=== PATIENT | female | born 1935 | race Two or more races ===

== ENCOUNTER 2020-11-25 13:46 | Inpatient (IN) | payer MEDICARE ==
[2020-11-24] MEDS: IV D5 1/2 NS 1000 ML 1,000 ML IV PRN (21:00)
[~2020-11-25] VITALS: Ht 152.4 cm; Wt 57.6 kg
[2020-11-25 14:30] LABS: HEMATOCRIT 34.5 % (31.2-41.9); MEAN CORPUSCULAR HEMOGLOBIN 27.9 uug (24.7-32.8); MEAN CORPUSCULAR VOLUME 83.3 fL (75.5-95.3); PLATELET COUNT (AUTO) 350 K/uL (179-408)
[2020-11-25 14:47] LABS: BILIRUBIN,DIRECT 0.1 mg/dL (0.0-0.2); BILIRUBIN,TOTAL 0.3 mg/dL (0.2-1.0); CREATININE 0.9 mg/dL (0.6-1.3); POTASSIUM 3.9 mmol/L (3.5-5.1); TOTAL PROTEIN, SERUM 7.2 g/dL (6.4-8.2)
--- NOTE | 2020-11-25 14:58 | NUR ---
Epic panel call placed, Robert paged.
[2020-11-25] MEDS ORDERED: AMLO-212 PO (15:16)
[2020-11-25] MEDS ORDERED: INSU3INS6 SQ (15:16)
[2020-11-25] MEDS ORDERED: PRAV40TA3 PO (15:16)
[2020-11-25] MEDS ORDERED: LOSA50TA39 PO (15:16)
[2020-11-25] MEDS ORDERED: GLIM4TAB37 PO (15:16)
[2020-11-25] MEDS ORDERED: SERT25TA PO (15:16)
--- NOTE | 2020-11-25 16:15 | NUR ---
307 telemetry room assigned to patient.
[2020-11-25] MEDS ORDERED: ACETAMINOPHEN 325 MG TABLET PO PRN (16:30)
[2020-11-25] MEDS ORDERED: CLONIDINE HCL 0.1 MG TABLET PO PRN (16:30)
[2020-11-25] MEDS ORDERED: MAGNESIUM HYDROXIDE 30 ML LIQUID UDC PO PRN (16:30)
[2020-11-25] MEDS ORDERED: ONDANSETRON 4 MG/2 ML VIAL IV PRN (16:30)
[2020-11-25] MEDS ORDERED: DEXTROSE 50% 50 ML DISP.SYRIN IV PRN (16:30)
[2020-11-25] MEDS ORDERED: Z GUARD REMEDY PASTE 57 GM TUBE TOP PRN (16:30)
--- NOTE | 2020-11-25 16:44 | NUR ---
Report given to AMMON June.
[2020-11-25 16:45] LABS: *BILIRUBIN,URIN NEGATIVE (NEGATIVE); *BLOOD, URINE NEGATIVE (NEGATIVE); *CLARITY,URINE CLEAR (CLEAR); *COLOR,URINE YELLOW (YELLOW); *KETONES,URINE 1+ (NEGATIVE); LEUKOCYTE ESTERASE ,URINE TRACE (NEGATIVE); NITRITE, URINE NEGATIVE (NEGATIVE); UGLUCOSE TRACE (NEGATIVE)
[2020-11-25 17:05] LABS: BACTERIA,URINE FEW /HPF (NONE SEEN); SQUAMOUS EPITHELIAL CELL,UR FEW /HPF (NONE SEEN)
[2020-11-25 17:06] LABS: URINE AMORPHOUS PHOSPHATES FEW /HPF
--- NOTE | 2020-11-25 18:00 | NUR ---
ADMITTED PATIENT VIA STRETCHER FROM ER ACCOMPANIED BY DAISY. REPORT GIVEN BY AMMON HOLLIS. PATIENT IS ALERT/ORIENTEDX3, ABLE TO MAKE NEEDS KNOWN, NOTED WITH EPISODES OF FORGETFULNESS, POOR HISTORIAN. SKIN IS INTACT. INCONTINENT, USES PULL UPS UPON ARRIVAL. IV SITE, INTACT, G18 TO RIGHT AC. NO DISTRESS IDENTIFIED. ON ROOM AIR. VS WNL. KEPT CALL LIGHT WITHIN REACH, ORIENTED TO THE ROOM. MD MADE AWARE OF ADMISSION. WILL ENDORSE TO THE NEXT SHIFT FOR CONTINUITY OF CARE.
--- NOTE | 2020-11-25 19:34 | NUR ---
No distress identified during the shift. Frequent visual check done. Kept call light within reach. Assisted with ADLs. All needs attended. Kept environment safe. All due meds given as ordered. Will endorse to the next shift for continuity of care.
[2020-11-25 20:00] VITALS: BP 170/80
[2020-11-25] MEDS: BLOOD SUGAR DIAGNOSTIC 1 EACH STRIP VI SCH (20:48)
[2020-11-25] MEDS: AMLODIPINE 5 MG TABLET PO SCH (20:49)
[2020-11-25] MEDS: INSULIN REGULAR, HUMAN 300 UNITS/3 ML VIAL SQ PRN (21:10)
[2020-11-25] MEDS: hydrALAZINE HCL 25 MG TABLET PO PRN (22:37)
--- NOTE | 2020-11-25 22:37 | NUR ---
PATIENT BP STILL ELEVATED 177/83,. 178/88 GIVEN APRESOLINE 25 MG PO ORDERED, NO HEADACHES NOTED, NO COMPLAIN OF DISCOMFORT, CONT TO MONITOR.
--- NOTE | 2020-11-26 03:43 | NUR ---
PATIENT BP ON RIGHT ARM 151/67 P 87, AND BP ON LEFT ARM 140/74 P 93. PATIENT HAS NO HEADACHES NO COMPLAIN OF DISCOMFORT, CONT TO MONITOR.
[2020-11-26 03:48] VITALS: BP 151/67
[2020-11-26 03:49] VITALS: BP 140/74
[2020-11-26 04:00] VITALS: BP 154/79
[2020-11-26] MEDS: BLOOD SUGAR DIAGNOSTIC 1 EACH STRIP VI SCH ×4 (05:22→20:41)
[2020-11-26 06:12] LABS: HEMATOCRIT 33.8 % (31.2-41.9); MEAN CORPUSCULAR HEMOGLOBIN 27.3 uug (24.7-32.8); MEAN CORPUSCULAR VOLUME 83.5 fL (75.5-95.3); PLATELET COUNT (AUTO) 332 K/uL (179-408)
[2020-11-26 06:25] LABS: CREATININE 0.8 mg/dL (0.6-1.3); MAGNESIUM 1.8 mg/dL (1.8-2.4); PHOSPHOROUS 3.1 mg/dL (2.5-4.9)
[2020-11-26] MEDS ORDERED: CEFTRIAXONE 1 G VIAL IV SCH (07:45)
--- NOTE | 2020-11-26 08:00 | NUR ---
Alert, oriented x 4, pleasant, able to verbalized needs appropriately. IVF infusing well
[2020-11-26] MEDS: CEFTRIAXONE 1 G in IV DEXTROSE 5% 50 ML IV SCH (09:19)
[2020-11-26] MEDS: LOSARTAN POTASSIUM 50 MG TABLET PO SCH (09:21)
[2020-11-26] MEDS: AMLODIPINE 5 MG TABLET PO SCH ×2 (09:21→20:57)
[2020-11-26] MEDS: ATORVASTATIN 10 MG TABLET PO SCH (09:21)
[2020-11-26] MEDS: SERTRALINE HCL 50 MG TABLET PO SCH (09:22)
[2020-11-26] MEDS: INSULIN REGULAR, HUMAN 300 UNIT/3 ML VIAL SQ PRN ×3 (09:25→17:58)
--- NOTE | 2020-11-26 10:00 | NUR ---
PT eval done. Assisted out of bed, ambulated.
[2020-11-26 11:40] VITALS: BP 143/57
--- NOTE | 2020-11-26 14:00 | NUR ---
Spoke with daughter over the phone, discussed plan of care and medications.
[2020-11-26 15:44] VITALS: BP_SYST 125; BP_SYST 147; BP_DIAS 64; BP_DIAS 68
--- NOTE | 2020-11-26 18:39 | NUR ---
Blood glucose monitored with Insulin sliding scale. Eating fairly
[2020-11-26] MEDS: IV D5 1/2 NS 1000 ML 1,000 ML IV PRN (19:59)
--- NOTE | 2020-11-26 20:00 | NUR ---
NSG: Received patient lying on bed. No distress identified. Frequent visual check done. Kept call light within reach. Assisted with ADLs. All needs attended. Kept environment safe. All due meds given as ordered. continue plan of care.
[2020-11-26 20:20] VITALS: BP 138/51
[2020-11-26] MEDS: INSULIN REGULAR, HUMAN 300 UNITS/3 ML VIAL SQ PRN (21:00)
--- NOTE | 2020-11-26 21:17 | NUR ---
nsg: patient c/o constipation. Mom 30 ml po given.
--- NOTE | 2020-11-26 22:00 | NUR ---
received to care at 2130, lying in bed, alert and oriented x 2. D5 1/2 NS continues to infuse to right antecubital, at 75 cc/hour. assisted to bathroom PRN. accucheck done, and insulin coverage done, by previous nurse. snack and fluids were given. no signs of hypo/hyperglycemia noted. call light remains in reach, at all times. no results yet, from milk of magnesia. will continue to monitor closely.
[2020-11-27 04:25] VITALS: BP 161/71
[2020-11-27] MEDS: hydrALAZINE HCL 25 MG TABLET PO PRN (04:42)
[2020-11-27 05:46] VITALS: BP 141/68
--- NOTE | 2020-11-27 06:00 | NUR ---
b/p at 0400 was 161/71. PRN hydralazine was giiven. b/p at 0545 was 141/68
[2020-11-27] MEDS: BLOOD SUGAR DIAGNOSTIC 1 EACH STRIP VI SCH ×2 (06:52→10:48)
[2020-11-27] MEDS: INSULIN REGULAR, HUMAN 300 UNIT/3 ML VIAL SQ PRN (07:26)
[2020-11-27] MEDS: CEFTRIAXONE 1 G in IV DEXTROSE 5% 50 ML IV SCH (07:31)
[2020-11-27] MEDS ORDERED: NITR100C11 PO (08:00)
[2020-11-27] MEDS ORDERED: METF-440 PO (08:00)
[2020-11-27] MEDS: SERTRALINE HCL 50 MG TABLET PO SCH (08:05)
[2020-11-27] MEDS: LOSARTAN POTASSIUM 50 MG TABLET PO SCH (08:05)
[2020-11-27 08:06] VITALS: BP 141/68
[2020-11-27] MEDS: ATORVASTATIN 10 MG TABLET PO SCH (08:06)
[2020-11-27] MEDS: AMLODIPINE 5 MG TABLET PO SCH (08:06)
--- NOTE | 2020-11-27 10:59 | NUR ---
dc orders received noted and carried out,dc instruction and education given to the pt and her daughter.dc heplock per md orders.pt left the facility via private car in stable condition with her grandson
== END 2020-11-27 11:00 | disposition home or self-care (01) | DRG 637 ==
LOC: ER 13:46 → MEDSURG3 17:28
PROVIDERS: ADMIT Internal Medicine; ATTEND Internal Medicine
DX: E11.649 Type 2 diabetes mellitus with hypoglycemia without coma (principal); G93.41 Metabolic encephalopathy; N39.0 Urinary tract infection, site not specified; E87.1 Hypo-osmolality and hyponatremia; E78.5 Hyperlipidemia, unspecified; F32.9 Major depressive disorder, single episode, unspecified; G30.9 Alzheimer's disease, unspecified; N17.0 Acute kidney failure with tubular necrosis; M19.90 Unspecified osteoarthritis, unspecified site; Z86.73 Personal history of transient ischemic attack (TIA), and cerebral infarction without residual deficits; I10 Essential (primary) hypertension; R26.9 Unspecified abnormalities of gait and mobility; E11.40 Type 2 diabetes mellitus with diabetic neuropathy, unspecified; Z20.822 Contact with and (suspected) exposure to COVID-19; Z79.84 Long term (current) use of oral hypoglycemic drugs; F02.80 Dementia in other diseases classified elsewhere, unspecified severity, without behavioral disturbance, psychotic disturbance, mood disturbance, and anxiety
CPT/HCPCS: 36415; 70030-TC; 71045; 83605; 83735; 84100; 85025; 85730; 87040; 87086; 93005; 97161; A4663; C1758; G0378; J0696; J1815; J2405; J3490; J7060